=== PATIENT | female | born 2000 | race African-American/Black ===

== ENCOUNTER 2023-02-03 02:01 | Emergency (ER) | payer OTHER ==
[~2023-02-03] VITALS: Ht 149.8 cm; Wt 50.0 kg
[2023-02-03 02:20] VITALS: BP 138/89
--- NOTE | 2023-02-03 02:24 | ED General ---
General Stated Complaint: CP Source of Information: Patient Exam Limitations: No Limitations History of Present Illness Date Seen by Provider: Feb 03, 2023 Time Seen by Provider: 02:24 Initial Comments Patient is a 22-year-old female who presents to the emergency room with a chief complaint of chest heaviness. She states it woke her from sleep at about 130 this morning. She states all day long yesterday, Saturday she was nauseous and feeling lightheaded. No fevers, chills, runny nose, congestion, cough. No dysuria, urgency or frequency. She started her menstrual cycle within the last day or 2, it is a few days early and much heavier than normal. She is on control. Denies any history of known medical conditions. Her mom is 58 and had a heart attack on Mother's Day of this year. Patient denies any recent prolonged immobility, travel or surgeries. She does not smoke or use illicit drugs. She is a recreational drinker. Nothing makes the chest heaviness any worse. She took 2 Excedrin prior to coming to the emergency department. She states the heaviness seems to radiate into her upper back. No numbness tingling or weakness in her extremities. College student. When she awoke from sleep the heaviness was a "10" she currently rates it at a "7 or 8". Timing/Duration: 1 Hour Severity: Severe Associated Systoms: Chest Pain, Nausea/Vomiting (Nausea without vomiting); No Shortness of Air Allergies and Home Medications Allergies Coded Allergies: No Known Drug Allergies (Unverified , 02/03/23) Patient Home Medication List Home Medication List Reviewed: Yes Review of Systems Review of Systems Constitutional: see HPI EENTM: no symptoms reported Respiratory: no symptoms reported Cardiovascular: chest pain Gastrointestinal: nausea Genitourinary: no symptoms reported LMP: Feb 02, 2023 Musculoskeletal: back pain Skin: no symptoms reported Psychiatric/Neurological: Headache ("I always have a headache"); Denies Numbness, Denies Paresthesia Physical Exam Vital Signs Vital Signs - First Documented 02/03/23 02:20 Temp 36.8 Pulse 100 Resp 20 B/P (MAP) 138/89 (105) Capillary Refill : Height, Weight, BMI Height: '" Weight: lbs. oz. kg; BMI Method: General Appearance: WD/WN, Anxious, Mild Distress Eyes: Bilateral Eye Normal Inspection, Bilateral Eye PERRL, Bilateral Eye EOMI Neck: Normal Inspection, Non Tender, Supple Respiratory: Lungs Clear, Normal Breath Sounds, No Accessory Muscle Use, No Respiratory Distress Cardiovascular: Regular Rate, Rhythm (80's), Normal Peripheral Pulses Gastrointestinal: Non Tender, Soft Extremity: Normal Inspection, Normal Range of Motion, Non Tender, No Calf Tenderness, No Pedal Edema Neurologic/Psychiatric: Alert, Oriented x3, No Motor/Sensory Deficits, Other (Anxious) Skin: Normal Color, Warm/Dry Progress/Results/Core Measures Suspected Sepsis SIRS Temperature: Pulse: Respiratory Rate: Laboratory Tests 02/03/23 02:29: White Blood Count 9.0 Blood Pressure / Mean: Laboratory Tests 02/03/23 02:29: Creatinine 0.71, INR Comment 1.1, Platelet Count 428H, Total Bilirubin 0.3 Results/Orders Lab Results Laboratory Tests Test 02/03/23 02:29 02/03/23 05:00 Range/Units White Blood Count 9.0 4.3-11.0 10^3/uL Red Blood Count 4.41 3.80-5.11 10^6/uL Hemoglobin 14.0 11.5-16.0 g/dL Hematocrit 41 35-52 % Mean Corpuscular Volume 93 80-99 fL Mean Corpuscular Hemoglobin 32 25-34 pg Mean Corpuscular Hemoglobin Concent 34 32-36 g/dL Red Cell Distribution Width 12.0 10.0-14.5 % Platelet Count 428 H 130-400 10^3/uL Mean Platelet Volume 9.0 9.0-12.2 fL Immature Granulocyte % (Auto) 0 % Neutrophils (%) (Auto) 43 42-75 % Lymphocytes (%) (Auto) 44 12-44 % Monocytes (%) (Auto) 9 0-12 % Eosinophils (%) (Auto) 3 0-10 % Basophils (%) (Auto) 1 0-10 % Neutrophils # (Auto) 3.9 1.8-7.8 10^3/uL Lymphocytes # (Auto) 4.0 1.0-4.0 10^3/uL Monocytes # (Auto) 0.8 0.0-1.0 10^3/uL Eosinophils # (Auto) 0.3 0.0-0.3 10^3/uL Basophils # (Auto) 0.1 0.0-0.1 10^3/uL Immature Granulocyte # (Auto) 0.0 0.0-0.1 10^3/uL Prothrombin Time 14.6 12.2-14.7 SEC INR Comment 1.1 0.8-1.4 Activated Partial Thromboplast Time 33 24-35 SEC Sodium Level 139 135-145 MMOL/L Potassium Level 3.0 L 3.6-5.0 MMOL/L Chloride Level 108 H 98-107 MMOL/L Carbon Dioxide Level 19 L 21-32 MMOL/L Anion Gap 12 5-14 MMOL/L Blood Urea Nitrogen 6 L 7-18 MG/DL Creatinine 0.71 0.60-1.30 MG/DL Estimat Glomerular Filtration Rate 124 BUN/Creatinine Ratio 8 Glucose Level 105 70-105 MG/DL Calcium Level 9.4 8.5-10.1 MG/DL Corrected Calcium 8.5-10.1 MG/DL Magnesium Level 2.0 1.6-2.4 MG/DL Total Bilirubin 0.3 0.1-1.0 MG/DL Aspartate Amino Transf (AST/SGOT) 14 5-34 U/L Alanine Aminotransferase (ALT/SGPT) 11 0-55 U/L Alkaline Phosphatase 61 40-136 U/L Troponin I < 0.028 < 0.028 <0.028 NG/ML Total Protein 8.0 6.4-8.2 GM/DL Albumin 4.6 H 3.2-4.5 GM/DL Serum Test, Qualitative NEGATIVE NEGATIVE My Orders Orders - JOSE RAMON FISH MD Ekg Tracing (02/03/23 02:17) Cbc And Automated Diff (02/03/23 02:35) Magnesium (02/03/23 02:35) Chest 1 View, Ap/Pa Only (02/03/23 02:35) Ekg Tracing (02/03/23 02:35) Comprehensive Metabolic Panel (02/03/23 02:35) Protime With Inr (02/03/23 02:35) Partial Thromboplastin Time (02/03/23 02:35) O2 (02/03/23 02:35) Monitor-Rhythm Ecg Trace Only (02/03/23 02:35) Lipid Panel (02/04/23 06:00) Ed Iv/Invasive Line Start (02/03/23 02:35) Troponin I Aniya (02/03/23 02:35) Aspirin Chewable Tablet (Aspirin Chewabl (02/03/23 02:45) Ondansetron Injection (Ondansetron Inj (02/03/23 02:45) Ketorolac Injection (Ketorolac Injection (02/03/23 02:45) Hcg,Qualitative Serum (02/03/23 02:35) Ekg Tracing (02/03/23 03:38) Troponin I Aniya (02/03/23 04:26) Medications Given in ED Current Medications Medications Dose Ordered Sig/Eduardo Route Start Time Stop Time Status Last Admin Dose Admin Aspirin 324 mg ONCE ONCE PO 02/03/23 02:45 02/03/23 02:46 DC 02/03/23 02:48 324 MG Ketorolac Tromethamine 15 mg ONCE ONCE IVP 02/03/23 02:45 02/03/23 02:46 DC 02/03/23 02:48 15 MG Ondansetron HCl 4 mg ONCE ONCE IVP 02/03/23 02:45 02/03/23 02:46 DC 02/03/23 02:48 4 MG Vital Signs/I&O 02/03/23 02:20 Temp 36.8 Pulse 100 Resp 20 B/P (MAP) 138/89 (105) Capillary Refill : Progress Note : Time: 05:45 Progress Note Patient seen and examined by me. Evaluation today includes history and physical exam, CBC, CHEM 12, magnesium, EKG, coag profile, single view chest x-ray, serum hCG qualitative, troponin x 2. Pertinent physical exam findings petite female, no acute distress. Heart is regular, lungs are clear, abdomen is soft and nontender. Lower extremities are soft, supple no calf tenderness. Stable vital signs. Patient is slightly apprehensive, tearful, anxious appearing. Differential diagnosis includes atypical chest pain/ACS, GERD, esophageal spasm Labs independently reviewed and interpreted by me. CBC is normal, comprehensive metabolic panel shows low potassium at 3.0. Normal liver functions, normal renal functions. Coags within normal limits. Serum troponin x 2 undetectable. EKG initially normal sinus rhythm with concern for minimal ST depression in leads V2, V3 and V4. Question delta wave V1 and V3. No ectopy. QRS is narrow. Repeat EKG is actually improved. NH interval a little bit longer. Delta wave only observable in V3. Chest x-ray shows no effusion, infiltrate. Normal mediastinal structures. Patient reevaluated after workup is completed, states she feels much better, no longer nauseated. No findings to suggest ACS at this time. Likely GERD related - consideration for possible WPW identified, however QRS is not widened, no tachycardia. 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 Diet rich in potassium. Close follow-up with primary care. Return precautions provided in both verbal and written format. All questions are sought and answered. ECG Initial ECG Impression Date: Feb 03, 2023 Initial ECG Impression Time: 02:25 Initial ECG Rate: 103 Initial ECG Rhythm: S.Tach Initial ECG Intervals: Normal Comment 1mm ST depression V3, V4, V5; no ectopy; short NH interval 104; Narrow QRS complexes ?delta wave V1 and V3 EKG : EKG Time: 03:42 Rate: 70 Rhythm: Normal Sinus ECG Comparisson: Changed Comment NH interval better - 127; The minimal ST depression in V2,3,4 has resolved. Still questionable delta wave in V3 - but V1 is better Diagnostic Imaging Diagonstic Imaging: Xray Plain Films/CT/US/NM/MRI: chest Comments Single view chest x-ray independently reviewed and interpreted by me -no infi ltrate or effusion Departure Impression Primary Impression: Chest pain Qualified Codes: R07.9 - Chest pain, unspecified Disposition: 01 HOME, SELF-CARE Condition: Improved Departure-Patient Inst. Decision time for Depature: 05:44 Referrals: NO,LOCAL PHYSICIAN (PCP/Family) Primary Care Physician Patient Instructions: Chest Pain That Is Not Caused by the Heart (DC) Add. Discharge Instructions: You should start an [id number] acid resistance welding machine operator such as generic Pepcid (famotidine). Take 1 tablet nightly. Your potassium was a little low today - increase potassium rich foods such as bananas and dark green leafy vegetables. No evidence of any concerning findings related to your heart have been found this evening. I would recommend you follow-up with a primary care provider. Return to the emergency department for any new, concerning or emergent complaints. JOSE RAMON FISH MD Feb 03, 2023 02:24
[2023-02-03 02:42] LABS: BASOPHILS # (AUTO) 0.1 10^3/uL (0.0-0.1); BASOPHILS % (AUTO) 1 % (0-10); EOSINOPHILS # (AUTO) 0.3 10^3/uL (0.0-0.3); EOSINOPHILS % (AUTO) 3 % (0-10); HEMATOCRIT 41 % (35-52); LYMPHOCYTES % (AUTO) 44 % (12-44); MEAN CORPUSCULAR HEMOGLOBIN 32 pg (25-34); MEAN CORPUSCULAR HGB CONC 34 g/dL (32-36); MEAN CORPUSCULAR VOLUME 93 fL (80-99); MONOCYTES # (AUTO) 0.8 10^3/uL (0.0-1.0); MONOCYTES % (AUTO) 9 % (0-12); NEUTROPHILS # (AUTO) 3.9 10^3/uL (1.8-7.8); NEUTROPHILS % (AUTO) 43 % (42-75); PLATELET COUNT 428 10^3/uL (130-400)
[2023-02-03] MEDS ORDERED: ASPIRIN 81 MG CHEWABLE TABLET PO ONE (02:45)
[2023-02-03] MEDS ORDERED: ONDANSETRON INJECTION 4 MG/2 ML (SDV) IVP ONE (02:45)
[2023-02-03] MEDS ORDERED: KETOROLAC INJ 15 MG/ML VIAL IVP ONE (02:45)
[2023-02-03 02:48] LABS: ALBUMIN 4.6 GM/DL (3.2-4.5); CHLORIDE 108 MMOL/L (98-107); SODIUM 139 MMOL/L (135-145)
[2023-02-03 02:49] LABS: CALCIUM 9.4 MG/DL (8.5-10.1)
[2023-02-03 02:50] LABS: GLUCOSE 105 MG/DL (70-105)
[2023-02-03 02:51] LABS: CARBON DIOXIDE 19 MMOL/L (21-32)
[2023-02-03 02:52] LABS: BILIRUBIN,TOTAL 0.3 MG/DL (0.1-1.0)
[2023-02-03 02:53] LABS: ALKALINE PHOSPHATASE 61 U/L (40-136)
[2023-02-03 02:54] LABS: CREATININE SERUM 0.71 MG/DL (0.60-1.30); GFR ESTIMATED 124
[2023-02-03 02:55] LABS: BUN/CREATININE RATIO 8
[2023-02-03 02:57] LABS: ALANINE AMINOTRANSFERASE 11 U/L (0-55)
[2023-02-03 03:29] LABS: INR 1.1 (0.8-1.4); PROTHROMBIN TIME PATIENT 14.6 SEC (12.2-14.7)
--- NOTE | 2023-02-03 07:50 | Diagnostic Imaging Report ---
INDICATION: Chest pain. COMPARISON: None available. TECHNIQUE: Single radiograph of the chest dated 02/03/2023. FINDINGS: The cardiac silhouette is within normal limits in size. No significant pulmonary vascular congestion. The lungs are clear. No pleural effusion. No pneumothorax. No acute osseous abnormality. IMPRESSION: No acute cardiopulmonary abnormality. Dictated by: Dictated on workstation # [id number]
== END 2023-02-03 06:05 | disposition home or self-care (01) ==
LOC: ER 02:07 → EDBD 02:07 → ER 06:05
DX: R07.89 Other chest pain (principal); R11.0 Nausea
CPT/HCPCS: 36415; 71045; 80053; 83735; 84484; 84703; 85025; 85610; 85730; 93005; 93041